=== PATIENT | male | born 1985 | race African-American/Black ===

== ENCOUNTER 2025-05-31 23:10 | Inpatient (IN) | payer OTHER ==
[~2025-05-31] VITALS: Ht 170.2 cm; Wt 67.1 kg
[2025-05-31] MEDS ORDERED: ONDANSETRON HCL/PF 4 MG/2 ML VIAL ONE (23:48)
[2025-05-31] MEDS ORDERED: MORPHINE SULFATE INJ 2 MG/ML DISP.SYRIN ONE (23:48)
[2025-05-31] MEDS: ONDANSETRON HCL/PF - ER 4 MG/2 ML VIAL IV ONE (23:57)
[2025-05-31] MEDS: MORPHINE SULFATE INJ 2 MG/ML DISP.SYRIN IV ONE (23:57)
[2025-06-01 00:02] LABS: PLATELET COUNT (AUTO) 509 K/uL (150-450); RED BLOOD CELL COUNT(AUTO) 4.47 MIL/uL (4.5-6.0); RED CELL DISTRIBUTION WIDTH 13.7 % (11.5-15.0); WHITE BLOOD COUNT (AUTO) 13.2 K/uL (4.3-11.0)
[2025-06-01 00:10] LABS: CALCIUM, SERUM 10.2 mg/dL (8.5-10.1); CREATININE 1.3 mg/dL (0.6-1.3); SODIUM SERUM 137.0 mmol/L (136-145); UREA NITROGEN, BLOOD 10.0 mg/dL (7-18)
[2025-06-01 00:23] LABS: ASPARTATE AMINOTRANSFERASE 335.0 U/L (15-37); NT-PRO BNP 42.0 pg/mL (0-125); TOTAL PROTEIN, SERUM 8.7 g/dL (6.4-8.2)
[2025-06-01 00:29] LABS: APPEARANCE,URINE CLEAR (CLEAR); BLOOD, URINE NEGATIVE Ery/uL (NEGATIVE); LEUKOCYTE ESTERASE ,URINE NEGATIVE (NEGATIVE); NITRITE, URINE NEGATIVE (NEGATIVE); UGLUCOSE TRACE mg/dL (NEGATIVE)
[2025-06-01 00:33] LABS: ADD URINE CULTURE NO; SQUAMOUS EPITHELIAL CELL,UR Few /HPF (None Seen)
[2025-06-01] MEDS ORDERED: MAG HYDROX/AL HYDROX/SIMETH 30 ML UDC PO PRN (05:00)
[2025-06-01] MEDS ORDERED: ACETAMINOPHEN 325 MG TABLET PO PRN (05:00)
[2025-06-01] MEDS ORDERED: Z GUARD REMEDY 4 OZ OINT TP PRN (05:00)
[2025-06-01] MEDS ORDERED: ONDANSETRON HCL/PF 4 MG/2 ML VIAL IVP PRN (05:00)
[2025-06-01] MEDS ORDERED: MAGNESIUM HYDROXIDE 30 ML UDC PO PRN (05:00)
[2025-06-01] MEDS ORDERED: MORPHINE SULFATE INJ 4 MG/ML DISP.SYRIN ONE (05:40)
[2025-06-01] MEDS: MORPHINE SULFATE INJ 2 MG/ML DISP.SYRIN IV PRN (05:45)
[2025-06-01 08:00] VITALS: BP 119/87; TEMP 97.8; O2SAT 98
[2025-06-01] MEDS ORDERED: FLUO40CA49 PO (09:23)
[2025-06-01] MEDS ORDERED: BICT1TAB PO (09:23)
[2025-06-01] MEDS ORDERED: PANT40TA49 PO (09:23)
[2025-06-01] MEDS ORDERED: CHOL100062 PO (09:23)
[2025-06-01] MEDS ORDERED: CHLO25TA2 PO (09:23)
[2025-06-01] MEDS ORDERED: TRAZ-252 PO (09:23)
[2025-06-01] MEDS ORDERED: AMLO-213 PO (09:23)
[2025-06-01] MEDS ORDERED: SUVO10TA PO (09:23)
[2025-06-01] MEDS ORDERED: POTASSIUM CHLORIDE 20 MEQ TAB.PRT.SR PO SCH (10:00)
[2025-06-01] MEDS: IV D5/ 0.9% NACL 1,000 ML IV PRN (10:25)
[2025-06-01] MEDS: POTASSIUM CL. PREMIX PERIPHER. 50 ML IV SCH (10:36)
[2025-06-01] MEDS: PANTOPRAZOLE 40 MG VIAL IV SCH (12:23)
[2025-06-01 16:07] VITALS: BP 119/88; TEMP 98.2; O2SAT 96
[2025-06-01 19:48] VITALS: BP 113/78; TEMP 98.4; O2SAT 98
[2025-06-01 20:00] VITALS: BP 113/78; TEMP 98.4; O2SAT 97
[2025-06-02 03:07] LABS: HBSAG SCREEN Negative (Negative); HEPATITIS A AB, IgM Negative (Negative); HEPATITIS B CORE AB, IgM Negative (Negative)
[2025-06-02 05:59] LABS: PLATELET COUNT (AUTO) 492 K/uL (150-450); RED BLOOD CELL COUNT(AUTO) 4.15 MIL/uL (4.5-6.0); RED CELL DISTRIBUTION WIDTH 13.3 % (11.5-15.0); WHITE BLOOD COUNT (AUTO) 8.9 K/uL (4.3-11.0)
[2025-06-02 06:08] LABS: ASPARTATE AMINOTRANSFERASE 104.0 U/L (15-37); CALCIUM, SERUM 9.7 mg/dL (8.5-10.1); CREATININE 1.5 mg/dL (0.6-1.3); PHOSPHORUS 2.9 mg/dL (2.5-4.9); SODIUM SERUM 137.0 mmol/L (136-145); TOTAL PROTEIN, SERUM 8.2 g/dL (6.4-8.2); UREA NITROGEN, BLOOD 13.0 mg/dL (7-18)
[2025-06-02 08:00] VITALS: BP 114/85; TEMP 98.2; O2SAT 98
[2025-06-02] MEDS: POTASSIUM CL. PREMIX PERIPHER. 50 ML IV SCH (10:01)
[2025-06-02 16:12] VITALS: BP 127/86; TEMP 97.2; O2SAT 80
[2025-06-02 20:00] VITALS: BP 121/80; TEMP 97.3; O2SAT 98
[2025-06-03 06:09] LABS: PLATELET COUNT (AUTO) 509 K/uL (150-450); RED BLOOD CELL COUNT(AUTO) 4.00 MIL/uL (4.5-6.0); RED CELL DISTRIBUTION WIDTH 13.6 % (11.5-15.0); WHITE BLOOD COUNT (AUTO) 6.5 K/uL (4.3-11.0)
[2025-06-03 06:20] LABS: ASPARTATE AMINOTRANSFERASE 200.0 U/L (15-37); CALCIUM, SERUM 9.5 mg/dL (8.5-10.1); CREATININE 1.2 mg/dL (0.6-1.3); PHOSPHORUS 3.4 mg/dL (2.5-4.9); SODIUM SERUM 138.0 mmol/L (136-145); TOTAL PROTEIN, SERUM 7.9 g/dL (6.4-8.2); UREA NITROGEN, BLOOD 8.0 mg/dL (7-18)
[2025-06-03 06:55] LABS: CREATINE KINASE, TOTAL 79.0 U/L (39-308)
[2025-06-03 08:00] VITALS: BP 113/88; TEMP 97.7; O2SAT 99
[2025-06-03] MEDS: POTASSIUM CL. PREMIX PERIPHER. 50 ML IV SCH (08:35)
[2025-06-03 08:48] LABS: INR 0.94 (0.91-1.10)
[2025-06-03] MEDS ORDERED: IOHEXOL 50 ML IV ONE (15:19)
[2025-06-03] MEDS ORDERED: INDOMETHACIN 100 MG SUPP.RECT ONE (15:19)
[2025-06-03 16:00] VITALS: BP 116/94; TEMP 98.4; O2SAT 98
[2025-06-03] MEDS ORDERED: FENTANYL PF 100MCG/2ML AMPUL ONE (16:19)
[2025-06-03] MEDS ORDERED: MIDAZOLAM HCL 2 MG/2ML VIAL ONE (16:19)
[2025-06-03] MEDS ORDERED: LABETALOL 20 MG/4 ML VIAL ONE (17:23)
[2025-06-03 17:35] VITALS: BP 157/125
[2025-06-03] MEDS: LABETALOL 20 MG/4 ML VIAL IV STA (17:35)
[2025-06-04 13:12] LABS: PTH, INTACT 42 pg/mL (15-65)
== END 2025-06-03 21:55 | disposition left against medical advice (07) ==
LOC: ER 23:15 → MED 06-01 09:57
PROVIDERS: ADMIT Internal Medicine; ATTEND Nurse Practitioner Family
PROC: BF13YZZ Fluoroscopy of Gallbladder and Bile Ducts using Other Contrast (ICD-10-PCS; 2025-06-03)
PROC: 0FC98ZZ Extirpation of Matter from Common Bile Duct, Via Natural or Artificial Opening Endoscopic (ICD-10-PCS; principal; 2025-06-03 15:00)
DX: K80.50 Calculus of bile duct without cholangitis or cholecystitis without obstruction (principal); N17.9 Acute kidney failure, unspecified; E83.9 Disorder of mineral metabolism, unspecified; D64.9 Anemia, unspecified; E87.6 Hypokalemia; M89.8X9 Other specified disorders of bone, unspecified site; R74.01 Elevation of levels of liver transaminase levels; R74.8 Abnormal levels of other serum enzymes; I12.9 Hypertensive chronic kidney disease with stage 1 through stage 4 chronic kidney disease, or unspecified chronic kidney disease; N18.9 Chronic kidney disease, unspecified
CPT/HCPCS: 36415; 71045-TC; 74018; 74181-TC; 76705-TC; 76770-TC; 80048-TC; 80053-TC; 80076-TC; 81001; 82550-TC; 83690-TC; 83735-TC; 83880; 83970; 84100-TC; 84155; 84165; 84439-TC; 84443-TC; 84484-TC; 85025-TC; 85730-TC; 86850-TC; 93307-TC; A4223; C1769; G0378; J0690; J2250; J2270; J2405; J2470; J2704; J3010; J3480; J3490; J7030; J7042; Q9967